=== PATIENT | female | born 1980 ===

== ENCOUNTER 2017-11-09 16:58 | Emergency (ER) | payer OTHER ==
[2017-11-09 18:12] VITALS: BP 127/78; PULSE 90; RESP 16; TEMP 98.4; O2SAT 97
--- NOTE | 2017-11-09 18:17 | ED PDOC ---
HPI: Skin/Bite Injury Time Seen by Provider: 11/09/17 17:30 Chief Complaint (Nursing): Abnormal Skin Integrity Chief Complaint (Provider): Abnormal Skin Integrity History Per: Patient History/Exam Limitations: no limitations Onset/Duration Of Symptoms: Intermittent Episodes Current Symptoms Are (Timing): Still Present Additional Complaint(s): 37 year old female arrives to ED with complaint of an itchy red rash on her inner thighs ongoing for years usually occurring in the summer. She states the rash usually resolves on its own once the season is over but it had progressed to her left arm which prompted ED visit. Otherwise: (-) fever, (-) chills, (-) URI symptoms, or (-) new medicine, products, or diet. Has no other complaints. PMD: none provided Past Medical History Reviewed: Historical Data, Nursing Documentation, Vital Signs Vital Signs: Last Vital Signs Temp 98.4 F 11/09/17 18:11 Pulse 90 11/09/17 18:11 Resp 16 11/09/17 18:11 BP 127/78 11/09/17 18:11 Pulse Ox 97 11/09/17 20:42 - Medical History PMH: Gastritis, HTN Denies: Chronic Kidney Disease - Family History Family History: States: No Known Family Hx - Home Medications Home Medications: Ambulatory Orders Medication Instructions Recorded Acetaminophen [Tylenol] 650 mg PO Q6H PRN 05/08/15 Ciprofloxacin [Cipro] 500 mg PO BID #20 tab 05/11/15 Ferrous Sulfate [Feosol] 325 mg PO BID #0 tab 05/11/15 Ibuprofen [Motrin] 600 mg PO Q8 PRN #21 tab 12/29/15 Penicillin VK [Pen-Vee K] 1 tab PO QID #40 tab 12/29/15 oxyCODONE/Acetaminophen [Percocet 1 ea PO Q6 PRN #10 tab 12/29/15 5/325 mg Tab] Cetirizine HCl [Zyrtec] 10 mg PO DAILY #30 capsule 11/09/17 Hydrocortisone Rebekah 0.2% Cr 1 applic TOP BID #1 tube 11/09/17 [Westcort] - Allergies Allergies/Adverse Reactions: Allergies Allergy/AdvReac Type Severity Reaction Status Date / Time No Known Allergies Allergy Verified 11/09/17 17:08 Review of Systems ROS Statement: Except As Marked, All Systems Reviewed And Found Negative Constitutional: Negative for: Fever, Chills ENT: Negative for: Nose Discharge, Nose Congestion, Throat Pain Respiratory: Negative for: Cough Skin: Positive for: Rash (inner thighs and left arm) Physical Exam - Reviewed Nursing Documentation Reviewed: Yes Vital Signs Reviewed: Yes - Physical Exam Appears: Positive for: Well, Non-toxic, No Acute Distress Head Exam: Positive for: ATRAUMATIC, NORMAL INSPECTION, NORMOCEPHALIC Skin: Positive for: Normal Color, Warm, Rash (+erythematous rash to medial aspect of bilateral thighs and left arm.) ENT: Positive for: Normal ENT Inspection Neck: Positive for: Normal, Painless ROM, Supple Cardiovascular/Chest: Positive for: Regular Rate, Rhythm. Negative for: Murmur Respiratory: Positive for: Normal Breath Sounds. Negative for: Rhonchi, Wheezing Back: Positive for: Normal Inspection Extremity: Positive for: Normal ROM Neurologic/Psych: Positive for: Alert, food service tray attendant II-XII (intact), Oriented (x3). Negative for: Motor/Sensory Deficits - ECG O2 Sat by Pulse Oximetry: 97 (RA) Pulse Ox Interpretation: Normal Medical Decision Making Medical Decision Making: Time: 1715 Initial Impression: Eczema Time: 1810 --Advised to follow up with dermatology referral or the clinic in 1-2 days without fail. Advised to take medication as prescribed. Return to the emergency room at any time for any new or worsening symptoms. Patient states she fully agrees with and understands discharge instructions. States that she agrees with the plan and disposition. Verbalized and repeated discharge instructions and plan. I have given the patient opportunity to ask any additional questions. Scribe Attestation: Documented by Verónica Osborne, acting as a scribe for Martita L. Cruz PA-C. Provider Scribe Attestation: All medical record entries made by the Scribe were at my direction and personally dictated by me. I have reviewed the chart and agree that the record accurately reflects my personal performance of the history, physical exam, medical decision making, and the department course for this patient. I have also personally directed, reviewed, and agree with the discharge instructions and disposition. Disposition - Clinical Impression Clinical Impression: Rash - Patient ED Disposition Is Patient to be Admitted: No Counseled Patient/Family Regarding: Diagnosis, Need For Followup, Rx Given - Disposition Referrals: [facility] [Outside] Monico Jenkins MD [Staff Provider] - Disposition: Routine/Home Disposition Time: 17:50 Condition: STABLE Additional Instructions: Thank you for letting us take care of you today. You were treated for rash, likely eczema. The emergency medical care you received today was directed at your acute symptoms. If you were prescribed any medication, please fill it and take as directed. It may take several days for your symptoms to resolve. Return to the Emergency Department if your symptoms worsen, do not improve, or if you have any other problems. Please call one of the physicians/clinics you have been referred to that are listed on the Patient Visit Information form that is included in your discharge packet. Bring any paperwork you were given at discharge with you along with any medications you are taking to your follow up visit. Our treatment cannot replace ongoing medical care by a primary care provider (PCP) outside of the emergency department. Thank you for allowing the [facility] team to be part of your care today. 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
== END 2017-11-09 18:12 | disposition home or self-care (01) ==
LOC: H.ER 16:58
DX: R21 Rash and other nonspecific skin eruption (principal)